=== PATIENT | male | born 1955 | race Caucasian/White ===

== ENCOUNTER 2016-10-08 06:55 | Emergency (ER) | payer MEDICARE ==
[~2016-10-08] VITALS: Ht 182.9 cm; Wt 103.4 kg
[2016-10-08] MEDS ORDERED: ASPIR-LOW81 MG PO (07:08)
== END 2016-10-08 08:58 | disposition home or self-care (01) ==
LOC: ED 06:55
PROC: 08CTXZZ Extirpation of Matter from Left Conjunctiva, External Approach (ICD-10-PCS; principal; 2016-10-08)
DX: T15.92XA Foreign body on external eye, part unspecified, left eye, initial encounter (principal); Z88.0 Allergy status to penicillin; Z79.82 Long term (current) use of aspirin; W45.8XXA Other foreign body or object entering through skin, initial encounter
CPT/HCPCS: 65205; 99282